=== PATIENT | male | born 1960 | race African-American/Black ===

== ENCOUNTER → 2018-07-18 | Outpatient (CLI) | payer BC ==
--- NOTE | 2018-07-18 16:12 | CARD ---
MR#: [id number] Date of Study: 07/18/2018 Ordering Physician: ELZBIETA TADEO, Referring Physician: ELZBIETA TADEO, Tech: Joanne Maravilla APPROVED REPORT EXAM: Two-dimensional and M-mode echocardiogram with Doppler and color Doppler. Other Information Quality : GoodHR: 67bpm INDICATION Murmur RISK FACTORS Hypertension 2D DIMENSIONS RVDd3.4 (2.9-3.5cm)Left Atrium(2D)3.5 (1.6-4.0cm) IVSd1.5 (0.7-1.1cm)Aortic Root(2D)3.7 (2.0-3.7cm) LVDd5.2 (3.9-5.9cm)LVOT Diameter2.3 (1.8-2.4cm) PWd1.1 (0.7-1.1cm)LVDs2.4 (2.5-4.0cm) FS (%) 53.5 %SV110.6 ml LVEF(%)84.1 (>50%) Aortic Valve AoV Peak Dano.130.3cm/sAoV VTI20.8cm AO Peak GR.6.8mmHgLVOT Peak Dano.75.0cm/s LVOT VTI 15.03cmAO Mean GR.3mmHg PA (VMAX)1.77pz3SUK (VTI)3.12cm2 Mitral Valve MV E Pbwqdroz73.1cm/sMV DECEL [id number] MV A Yfpikdja62.1cm/sMV [id number] E/A Ratio1.2MVA (PHT)3.87cm2 TDI E/Lateral E'5.1E/Medial E'7.2 Pulmonary Valve PV Peak Etifrjrt174.6cm/sPV Peak Grad.9mmHg Tricuspid Valve RAP [id number] Pulmonary Vein S1 Vwpbimbm87.4cm/sD2 Itikxfxv06.0cm/s PVa [id number] LEFT VENTRICLE The left ventricle is normal size. There is mild to moderate concentric left ventricular hypertrophy. The left ventricular systolic function is normal and the ejection fraction is within normal range. T he Ejection Fraction is >55%. There is normal LV segmental wall motion. The left ventricular diastoli c function and filling is normal for age. RIGHT VENTRICLE The right ventricle is normal size. There is normal right ventricular wall thickness. The right ventr icular systolic function is normal. ATRIA The left atrium size is normal. The right atrium size is normal. The interatrial septum is intact wit h no evidence for an atrial septal defect or patent foramen ovale as noted on 2-D or Doppler imaging. AORTIC VALVE The aortic valve is normal in structure and function. Doppler and Color Flow revealed no significant aortic regurgitation. There is no significant aortic valvular stenosis. MITRAL VALVE The mitral valve is thickened but opens well. There is no evidence of mitral valve prolapse. There is no mitral valve stenosis. Doppler and Color Flow revealed no mitral valve regurgitation noted. TRICUSPID VALVE The tricuspid valve is normal in structure and function. Doppler and Color Flow revealed no tricuspid valve regurgitation noted. There is no tricuspid valve stenosis. PULMONIC VALVE The pulmonic valve is not well visualized. Doppler and Color Flow revealed mild pulmonic valvular reg urgitation. GREAT VESSELS The aortic root is normal in size. The ascending aorta is normal in size. The IVC was not well visual ized. PERICARDIAL EFFUSION There is no evidence of significant pericardial effusion. Critical Notification Critical Value: No <Conclusion> The left ventricular systolic function is normal and the ejection fraction is within normal range. Th e Ejection Fraction is >55%. There is normal LV segmental wall motion. Signed by : Chaz Cortés, Electronically Approved : 07/18/2018 16:10:38
== END | disposition home or self-care (01) ==
LOC: ECHO 14:14
PROVIDERS: ATTEND Physician Assistant Medical
DX: I37.1 Nonrheumatic pulmonary valve insufficiency (principal); I10 Essential (primary) hypertension
CPT/HCPCS: 93306